=== PATIENT | male | born 1940 | race Caucasian/White ===

== ENCOUNTER 2018-10-06 16:30 | Inpatient (IN) | payer MEDICARE, OTHER ==
[~2018-10-06] VITALS: Ht 170.2 cm; Wt 80.1 kg
[2018-10-06] MEDS ORDERED: LORazepam 2 MG TABLET PO PRN (19:00)
[2018-10-06] MEDS ORDERED: ZOLPIDEM TARTRATE 10 MG TABLET PO PRN (19:00)
[2018-10-06] MEDS ORDERED: HALOPERIDOL 5 MG TABLET PO PRN (19:00)
[2018-10-06 20:00] VITALS: BP 161/96
[2018-10-06] MEDS ORDERED: PNEUMOCOCCAL VACCINE POLYVALENT 0.5 ML VIAL [PPSV23] IM ONE (20:15)
[2018-10-06] MEDS ORDERED: GuaiFENesin/D-METHORPHAN [SUGAR-FREE] 200-20MG/10 ML SYRUP UDCUP PO PRN (20:30)
[2018-10-06] MEDS ORDERED: PETROLATUM,WHITE 28 GM JELLY TP PRN (20:30)
[2018-10-06] MEDS ORDERED: ALBUTEROL SULFATE HFA 90 MCG/PUFF 8 GM INHALER IH PRN (20:30)
[2018-10-06] MEDS ORDERED: ACETAMINOPHEN 325 MG TABLET PO PRN (20:30)
[2018-10-06] MEDS ORDERED: NICOTINE 14 MG/24 HOUR PATCH TD PRN (20:30)
[2018-10-06] MEDS ORDERED: MAGNESIUM HYDROXIDE SUSPENSION 30 ML UDCUP PO PRN (20:30)
[2018-10-06] MEDS ORDERED: ONDANSETRON HCL 4 MG TABLET PO PRN (20:30)
[2018-10-06] MEDS ORDERED: DOCUSATE SODIUM 100 MG CAPSULE PO PRN (20:30)
[2018-10-06] MEDS ORDERED: IBUPROFEN 400 MG TABLET PO PRN (20:30)
[2018-10-06] MEDS ORDERED: CloNIDine HCL 0.1 MG TABLET PO PRN (20:30)
[2018-10-06] MEDS ORDERED: LOPERAMIDE HCL 2 MG CAPSULE PO PRN (20:30)
[2018-10-06] MEDS ORDERED: MAG HYDROX/AL HYDROX/SIMETH ES 30 ML SUSPENSION UDCUP PO PRN (20:30)
[2018-10-06] MEDS ORDERED: AmLODIPine BESYLATE 5 MG TABLET PO ONE (21:00)
[2018-10-06 22:01] VITALS: BP 176/85
[2018-10-06 22:49] VITALS: BP 151/78
[2018-10-07 00:38] VITALS: BP 134/82
[2018-10-07] MEDS: AmLODIPine BESYLATE 5 MG TABLET PO SCH (08:20)
[2018-10-07 08:27] VITALS: BP 140/80
[2018-10-07 08:33] LABS: BASOPHILS % (AUTO) 0.5 % (0.0-2.0); HEMATOCRIT 44.7 % (41-53); HEMOGLOBIN 15.2 g/dL (13.5-17.5); LYMPHOCYTES # (AUTO) 1.9 K/uL (1.0-4.8); LYMPHOCYTES % (AUTO) 23.6 % (22.0-44.0); MEAN CORPUSCULAR HEMOGLOBIN 31.8 pg (26.0-34.0); MEAN CORPUSCULAR HGB CONC 33.9 G/dL (31.0-37.0); MEAN CORPUSCULAR VOLUME 94 fL (80-100); MONOCYTES # (AUTO) 0.8 K/uL (0.1-1.0); MONOCYTES % (AUTO) 10.5 % (2.0-9.0); NEUTROPHILS # (AUTO) 5.1 K/uL (1.8-7.7); NEUTROPHILS % (AUTO) 63.4 % (40.0-70.0); PLATELET COUNT (AUTO) 240 K/uL (150-450); RED BLOOD CELL COUNT(AUTO) 4.76 MIL/uL (4.50-5.90); RED CELL DISTRIBUTION WIDTH 12.6 % (11.5-14.5)
[2018-10-07 09:02] LABS: HEMOGLOBIN A1C 5.8 % (4.5-6.2)
[2018-10-07 09:13] LABS: ALANINE AMINOTRANSFERASE 16 U/L (12-78); ALBUMIN 3.7 g/dL (3.4-5.0); ALKALINE PHOSPHATASE 92 U/L (46-116); ANION GAP 8 mmol/L (8-16); ASPARTATE AMINOTRANSFERASE 16 U/L (15-37); BILIRUBIN,TOTAL 0.8 mg/dL (0.1-1.0); CALCIUM, TOTAL 9.3 mg/dL (8.8-10.5); CARBON DIOXIDE 30 mmol/L (22-29); CHLORIDE 105 mmol/L (98-107); CHOL/HDL RATIO 4.5 (4.2-7.3); CHOLESTEROL 226 mg/dL (131-200); GLUCOSE,RANDOM 98 mg/dL (70-110); HDL CHOLESTEROL 50 mg/dL (40-60); LDL CHOL (CALC.) 162 mg/dL (0-130); POTASSIUM 4.3 mmol/L (3.5-5.1); SODIUM SERUM 143 mmol/L (136-145); THYROID STIMULATING HORMONE 3.24 uIU/mL (0.36-3.74); TOTAL PROTEIN, SERUM 7.3 g/dL (6.4-8.2); TRIGLYCERIDES 68 mg/dL (15-150); UREA NITROGEN, BLOOD 12 mg/dL (7-18)
[2018-10-07 09:28] LABS: GLOMERULAR FILTR. RATE CALC > 60 mL/min (>60)
[2018-10-07] MEDS: DIVALPROEX SODIUM 250 MG ER TABLET PO SCH (12:29)
[2018-10-07 16:41] VITALS: BP_SYST 127; BP_SYST 144; BP_DIAS 71; BP_DIAS 90
[2018-10-08 06:25] VITALS: BP 132/80
[2018-10-08] MEDS ORDERED: LEVOTHYROXINE SODIUM 50 MCG TABLET PO SCH (06:30)
[2018-10-08 09:00] VITALS: BP 136/82
[2018-10-08] MEDS: AmLODIPine BESYLATE 5 MG TABLET PO SCH (09:03)
[2018-10-08] MEDS: DIVALPROEX SODIUM 250 MG ER TABLET PO SCH (09:03)
[2018-10-08] MEDS ORDERED: DIVA250T45 PO (11:45)
[2018-10-08] MEDS ORDERED: AMLO-511 PO (11:49)
[2018-10-08] MEDS ORDERED: LEVO50 PO (11:49)
[2018-10-08 13:20] VITALS: BP 119/73
== END 2018-10-08 17:05 | disposition home or self-care (01) | DRG 885 ==
LOC: B2X 18:55
PROVIDERS: ADMIT Psychiatry & Neurology Child & Adolescent Psychiatry; ATTEND Psychiatry & Neurology Child & Adolescent Psychiatry
DX: F20.0 Paranoid schizophrenia (principal); F03.90 Unspecified dementia, unspecified severity, without behavioral disturbance, psychotic disturbance, mood disturbance, and anxiety; E78.5 Hyperlipidemia, unspecified; E55.9 Vitamin D deficiency, unspecified; E03.9 Hypothyroidism, unspecified; I10 Essential (primary) hypertension; F41.9 Anxiety disorder, unspecified
CPT/HCPCS: 83036; 84439; 84443